=== PATIENT | female | born 1960 | race Caucasian/White ===

== ENCOUNTER 2019-08-26 12:16 | Emergency (ER) | payer BC ==
[2019-08-26 12:47] LABS: ABSOLUTE BASOPHILS # (AUTO) 0.1 10^3/uL (0.0-0.2); ABSOLUTE EOSINOPHILS # (AUTO) 0.1 10^3/uL (0.0-0.6); ABSOLUTE LYMPHOCYTES (AUTO) 2.4 10^3/uL (0.5-4.7); ABSOLUTE MONOCYTES (AUTO) 0.5 10^3/uL (0.1-1.4); ABSOLUTE NEUT (AUTO) 5.8 10^3/uL (1.7-8.2); BASOPHILS % (AUTO) 0.6 % (0-2); EOSINOPHILS % (AUTO) 1.4 % (0-6); HEMOGLOBIN 15.1 g/dL (12.0-15.5); LYMPHOCYTES % (AUTO) 27.6 % (13-45); MEAN CORPUSCULAR HEMOGLOBIN 31.6 pg (27.0-33.4); MEAN CORPUSCULAR HGB CONC 34.3 g/dL (32.0-36.0); MEAN CORPUSCULAR VOLUME 92 fl (80-97); MONOCYTES % (AUTO) 5.6 % (3-13); PLATELET COUNT 289 10^3/uL (150-450); RED BLOOD COUNT 4.76 10^6/uL (3.72-5.28); RED CELL DISTRIBUTION WIDTH 12.6 % (11.5-14.0); SEGMENTED NEUTROPHILS % (AUTO) 64.8 % (42-78); TOTAL CELLS COUNTED % (AUTO) 100 %; WHITE BLOOD COUNT 8.9 10^3/uL (4.0-10.5)
[2019-08-26 13:05] LABS: ALBUMIN 5.2 g/dL (3.5-5.0); ALKALINE PHOSPHATASE 65 U/L (38-126); ANION GAP 14 (5-19); ASPARTATE AMINO TRANSFERASE 26 U/L (14-36); BILIRUBIN,TOTAL 1.5 mg/dL (0.2-1.3); BLOOD UREA NITROGEN 11 mg/dL (7-20); CALCIUM 10.4 mg/dL (8.4-10.2); CARBON DIOXIDE 22 mmol/L (22-30); CHLORIDE 104 mmol/L (98-107); GLUCOSE 103 mg/dL (75-110); POTASSIUM 3.7 mmol/L (3.6-5.0); TOTAL PROTEIN 8.2 g/dL (6.3-8.2)
--- NOTE | 2019-08-26 13:24 | RADIOLOGY REPORT (SQ) ---
EXAM DESCRIPTION: CHEST SINGLE VIEW IMAGES COMPLETED DATE/TIME: 08/26/2019 1:06 pm REASON FOR STUDY: shortness of breath COMPARISON: None. EXAM PARAMETERS: NUMBER OF VIEWS: One view. TECHNIQUE: An AP view of the chest was obtained. RADIATION DOSE: NA LIMITATIONS: None. FINDINGS: LUNGS AND PLEURA: No consolidation, pleural effusion or pneumothorax. MEDIASTINUM AND HILAR STRUCTURES: No mediastinal or hilar contour abnormality. HEART AND VASCULAR STRUCTURES: The cardiac silhouette and pulmonary vasculature are within normal rodriguez its. BONES: No acute findings. HARDWARE: None in the chest. OTHER: No other finding. IMPRESSION: No acute cardiopulmonary process. TECHNICAL DOCUMENTATION: JOB ID: [id number] 2010 [employer]- All Rights Reserved Reading location - IP/workstation name: [email or web address]
[2019-08-26 14:19] LABS: COLOR,URINE LIGHT YELLOW
[2019-08-26 14:20] LABS: APPEARANCE,URINE CLEAR; BILIRUBIN,URINE NEGATIVE (NEGATIVE); GLUCOSE, URINE NEGATIVE (NEGATIVE); KETONES,URINE NEGATIVE (NEGATIVE); LEUKOCYTE ESTERASE,URINE NEGATIVE (NEGATIVE); NITRITE,URINE NEGATIVE (NEGATIVE); PROTEIN,URINE NEGATIVE (NEGATIVE); URINE SPECIFIC GRAVITY 1.008; UROBILINOGEN,URINE NEGATIVE mg/dL (<2.0)
[2019-08-26 14:21] LABS: ADD MANUAL MICROSCOPIC YES
[2019-08-26 14:22] LABS: RBC,URINE RARE /HPF; WBC,URINE RARE /HPF
--- NOTE | 2019-08-26 14:36 | RADIOLOGY REPORT (SQ) ---
EXAM DESCRIPTION: CT HEAD WITHOUT IMAGES COMPLETED DATE/TIME: 08/26/2019 2:24 pm REASON FOR STUDY: paresthesia left arm COMPARISON: None. TECHNIQUE: Axial images acquired through the brain without intravenous contrast. Images reviewed wi th bone, brain and subdural windows. Additional sagittal and coronal reconstructions were generated. Images stored on PACS. All CT scanners at this facility use dose modulation, iterative reconstruction, and/or weight based d osing when appropriate to reduce radiation dose to as low as reasonably achievable (ALARA). [facility]: Dose Right [facility]: CareDose [facility]: Dose Right [facility]: Teradose 4D [facility]: [employer]joy RADIATION DOSE: CT Rad equipment meets quality standard of care and radiation dose reduction techniq ues were employed. CTDIvol: 53.2 mGy. DLP: 1017 mGy-cm. LIMITATIONS: None. FINDINGS: There is no acute intracranial hemorrhage, vascular territorial infarct, extra-axial fluid collection, mass effect or midline shift. The da silva-white matter differentiation is preserved. Ther e is no effacement of the cerebral sulci or basal subarachnoid cisterns. The caliber of the ventricl es is concordant with the degree of sulcation. The orbits and globes are intact. The paranasal sinuses are clear. There is no fracture of the calv arium. IMPRESSION: No acute intracranial abnormality. EVIDENCE OF ACUTE STROKE: NO. COMMENT: Quality ID # [id number]: Final reports with documentation of one or more dose reduction techniques (e.g., Automated exposure control, adjustment of the mA and/or kV according to patient size, use of iterative reconstruction technique) TECHNICAL DOCUMENTATION: JOB ID: [id number] 2010 [employer]- All Rights Reserved Reading location - IP/workstation name: [email or web address]
--- NOTE | 2019-08-26 14:45 | RADIOLOGY REPORT (SQ) ---
EXAM DESCRIPTION: CTA CHEST IMAGES COMPLETED DATE/TIME: 08/26/2019 2:24 pm REASON FOR STUDY: cp/sob COMPARISON: None. TECHNIQUE: CT scan of the chest performed using helical scanning technique with dynamic intravenous contrast injection. Images reviewed with lung, soft tissue and bone windows. Reconstructed coronal and sagittal MPR images reviewed. Additional 3 dimensional post-processing performed to develop Maximal Intensity Projection images (TN P). All images stored on PACS. All CT scanners at this facility use dose modulation, iterative reconstruction, and/or weight based d osing when appropriate to reduce radiation dose to as low as reasonably achievable (ALARA). [facility]: Dose Right [facility]: CareDose [facility]: Dose Right [facility]: Teradose 4D [facility]: [employer] CONTRAST TYPE AND DOSE: 106 Omnipaque 350- low osmolar. Contrast bolus optimized for the pulmonary arteries. RENAL FUNCTION: GFR > 60. RADIATION DOSE: CT Rad equipment meets quality standard of care and radiation dose reduction techniq ues were employed. CTDIvol: 6.6 - 29.8 mGy. DLP: 2202 mGy-cm. LIMITATIONS: None. FINDINGS: LUNGS AND PLEURA: The trachea and main bronchi are patent. There is no consolidation, sorin und-glass opacification, pneumothorax or greater than 6 mm pulmonary nodule. AORTA AND GREAT VESSELS: Variant 2 vessel arch with a common origin of the brachiocephalic and left c ommon carotid arteries. There is no thoracic aortic dissection or aneurysm. HEART: No cardiomegaly or pericardial effusion. PULMONARY ARTERIES: No emboli. HILAR AND MEDIASTINAL STRUCTURES: No mass or adenopathy. HARDWARE: None in the chest. UPPER ABDOMEN: No acute findings. THYROID AND OTHER SOFT TISSUES: No mass or adenopathy. BONES: No fracture or osseous lesion. 3D MIPS: Confirm above findings. OTHER: No other finding. IMPRESSION: No pulmonary emboli. COMMENT: Quality ID # [id number]: Final reports with documentation of one or more dose reduction techniques (e.g., Automated exposure control, adjustment of the mA and/or kV according to patient size, use of iterative reconstruction technique) TECHNICAL DOCUMENTATION: JOB ID: [id number] 2010 [employer]- All Rights Reserved Reading location - IP/workstation name: [email or web address]
--- NOTE | 2019-08-26 15:40 | ER Document Report ---
ED General - General Chief Complaint: Shortness Of Breath Stated Complaint: DIFFICULTY BREATHING Time Seen by Provider: 08/26/19 12:36 Mode of Arrival: Ambulatory Information source: Patient - HPI Notes: Patient presents with shortness of breath as well as left-sided tingling and numbness. She states the tingling and numbness goes from the head to the toe on the left side. She states that she has had both of these symptoms for several months but was afraid to come to the hospital due to COVID. She states today she was at the urgent care and they referred her to the emergency department. She states she has been prescribed cough syrup and an inhaler that has helped in the past. She denies any significant chest pain. No vomiting or diarrhea. No known coronavirus exposures. No fever sweats or chills. She states this tingling is intermittent. Nothing makes it better or worse. It seems to occur randomly. It goes from her head to her feet. It is moderate in intensity. She has had no significant weakness. - Related Data Allergies/Adverse Reactions: No Known Allergies Allergy (Verified 08/26/19 12:46) Past Medical History - General Information source: Patient - Social History Smoking Status: Former Smoker Frequency of alcohol use: None Drug Abuse: None Family History: Reviewed & Not Pertinent Patient has homicidal ideation: No Past Surgical History: Reports: Hx Hysterectomy - Total hysterectomy Review of Systems - Review of Systems Constitutional: denies: Chills, Fever Cardiovascular: denies: Chest pain, Palpitations Respiratory: Cough, Short of breath -: Yes All other systems reviewed and negative Physical Exam - Vital signs Vitals: Resp BP Pulse Ox 22 H 157/97 H 99 08/26/19 12:20 08/26/19 12:20 08/26/19 12:20 Interpretation: Hypertensive - General General appearance: Appears well, Alert - HEENT Head: Normocephalic, Atraumatic Eyes: Normal Pupils: PERRL - Respiratory Respiratory status: No respiratory distress Chest status: Nontender Breath sounds: Normal Chest palpation: Normal - Cardiovascular Rhythm: Regular Heart sounds: Normal auscultation Murmur: No - Abdominal Inspection: Normal Distension: No distension Bowel sounds: Normal Tenderness: Nontender Organomegaly: No organomegaly - Back Back: Normal, Nontender - Extremities General upper extremity: Normal inspection, Nontender, Normal color, Normal ROM, Normal temperature General lower extremity: Normal inspection, Nontender, Normal color, Normal ROM, Normal temperature, Normal weight bearing. No: Lashaun's sign - Neurological Neuro grossly intact: Yes Cognition: Normal Orientation: AAOx4 [place] Coma Scale Eye Opening: Spontaneous [place] Coma Scale Verbal: Oriented [place] Coma Scale Motor: Obeys Commands [place] Coma Scale Total: 15 Speech: Normal Motor strength normal: LUE, RUE, LLE, RLE Sensory: Normal - Psychological Associated symptoms: Normal affect, Normal mood - Skin Skin Temperature: Warm Skin Moisture: Dry Skin Color: Normal Course - Re-evaluation Re-evalutation: 08/26/19 15:38 Patient presents with shortness of breath and left-sided numbness and tingling is been going on for several months. There is no evidence of any type of infectious process. There is no evidence of pulmonary embolism. There is no evidence of cardiac ischemia. I think the patient is going to need follow-up as an outpatient with an echo and have discussed this with the patient. I also think that if symptoms continue she will need an MRI which have discussed with the patient. - Vital Signs Vital signs: Temp Pulse Resp BP Pulse Ox 98.6 F 23 H 154/111 H 99 08/26/19 12:41 08/26/19 13:03 08/26/19 13:03 08/26/19 13:03 - Laboratory Result Diagrams: 08/26/19 12:30 08/26/19 12:30 Laboratory results interpreted by me: 08/26/19 08/26/19 12:30 13:42 Calcium 10.4 H Total Bilirubin 1.5 H Albumin 5.2 H Urine Blood MODERATE H - Diagnostic Test Radiology reviewed: Image reviewed, Reports reviewed - EKG Interpretation by Or EKG shows normal: Sinus rhythm Rate: Normal - 80 Rhythm: NSR, APC's Captiva/QRS: No: Right axis deviation, Left axis deviation Discharge - Discharge Clinical Impression: Paresthesia Dyspnea Qualifiers: Dyspnea type: shortness of breath Qualified Code(s): R06.02 - Shortness of breath; R06.00 - Dyspnea, unspecified; R06.01 - Orthopnea Condition: Stable Disposition: HOME, SELF-CARE Instructions: Dyspnea, Nonspecific ([facility]) Additional Instructions: Please call your primary care physician as soon as possible to arrange follow-up . If your shortness of breath continues please discuss echocardiogram with your primary care doctor and if your numbness and tingling of the left side continue please discuss MRI with your primary care physician. Prescriptions: Dextromethorphan HBr [Cough Relief] 15 mg PO Q8 PRN 10 Days #1 bottle PRN Reason: Amlodipine Besylate [Norvasc 2.5 mg Tablet] 2.5 mg PO DAILY #30 tablet Albuterol Sulfate [Proair HFA Inhalation Aerosol 8.5 gm MDI] 2 puff IH Q4H PRN #1 mdi PRN Reason:
[2019-08-26 16:30] VITALS: BP 139/96
--- NOTE | 2019-08-27 07:59 | EKG REPORT ---
SEVERITY:- DEFECTIVE ECG - SINUS RHYTHM WITH SEVERE BASELINE ARTIFAAACT VERSUS ATRIAL FIBRILLATION.REPEAT EKG : Confirmed by: Renee Ac MD 27-Aug-2019 07:58:24
== END 2019-08-26 16:11 | disposition home or self-care (01) ==
LOC: ER 12:16
DX: R20.2 Paresthesia of skin (principal); R20.0 Anesthesia of skin; R06.02 Shortness of breath; R06.01 Orthopnea; R05 Cough; I49.1 Atrial premature depolarization; Z87.891 Personal history of nicotine dependence
CPT/HCPCS: 36415; 70450; 71045; 71275; 80053; 81001; 84484; 85025; 93005; 93010; 99285